=== PATIENT | female | born 1995 | race African-American/Black ===

== ENCOUNTER 2016-10-23 15:27 | Emergency (ER) | payer OTHER ==
[~2016-10-23] VITALS: Ht 157.5 cm; Wt 63.1 kg
[2016-10-23] MEDS ORDERED: HYDR-519 PO (16:35)
[2016-10-23] MEDS ORDERED: ALPR0.2582 PO (16:35)
[2016-10-23 16:36] VITALS: BP 147/87
== END 2016-10-23 19:27 | disposition left against medical advice (07) ==
LOC: ER 15:28
DX: Z53.21 Procedure and treatment not carried out due to patient leaving prior to being seen by health care provider (principal)